=== PATIENT | male | born 1970 | race Caucasian/White ===

== ENCOUNTER 2016-05-21 06:52 | Emergency (ER) | payer MEDICAID ==
[~2016-05-21] VITALS: Ht 182.9 cm; Wt 100.0 kg
[~2016-05-21 06:52] MED LIST: PRED20 PO
[2016-05-21 07:14] VITALS: BP 146/85; PULSE 116; RESP 18; TEMP 98.5; O2SAT 96
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
[2016-05-21] MEDS ORDERED: SODIUM CHLOR 0.9% 1000 ML INJ 1,000 ML IV ONE (08:45)
[2016-05-21 08:50] LABS: AUTOMATED NEUTROPHIL # 4.5 TH/MM3 (1.8-7.7); BASOPHIL # 0.1 TH/MM3 (0-0.2); BASOPHIL % 0.9 % (0.0-2.0); EOSINOPHIL % 0.2 % (0.0-4.0); HEMATOCRIT 37.1 % (39.0-51.0); HEMO FLAGS DIFF FINAL; LYMPH % 14.7 % (9.0-44.0); LYMPHOCYTE # 0.9 TH/MM3 (1.0-4.8); MEAN CELL VOLUME 84.7 FL (80.0-100.0); MEAN CORPUSCULAR HEMOGLOBIN 28.8 PG (27.0-34.0); MONO % 10.7 % (0.0-8.0); NEUT % 73.5 % (16.0-70.0); PLATELET COUNT 242 TH/MM3 (150-450); RED BLOOD COUNT 4.38 MIL/MM3 (4.50-5.90); RED CELL DISTRIBUTION WIDTH 13.4 % (11.6-17.2); WHITE BLOOD COUNT 6.2 TH/MM3 (4.0-11.0)
[2016-05-21] MEDS ORDERED: LORazepam 1 MG TAB PO ONE (09:00)
[2016-05-21 09:06] LABS: ANION GAP 9 MEQ/L (5-15)
[2016-05-21 09:12] LABS: ALKALINE PHOSPHATASE 60 U/L (45-117); ALT (GPT) 636 U/L (12-78); AST (GOT) 307 U/L (15-37); BICARBONATE 27.5 MEQ/L (21.0-32.0); BLOOD UREA NITROGEN 16 MG/DL (7-18); CHLORIDE 102 MEQ/L (98-107); CREATINE KINASE 204 U/L (39-308); GLOMERULAR FILTRATION RATE 85 ML/MIN (>89); POTASSIUM 3.8 MEQ/L (3.5-5.1); SODIUM (NA) 138 MEQ/L (136-145); TOTAL BILIRUBIN ADULT 1.1 MG/DL (0.2-1.0)
[2016-05-21 09:27] LABS: CKMB 2.4 NG/ML (0.5-3.6)
[2016-05-21 11:29] LABS: AMPHETAMINE, URINE POS (NEG); BARBITURATES, URINE NEG (NEG); COCAINE, URINE NEG (NEG)
[2016-05-21 14:00] VITALS: BP 130/84; PULSE 98; RESP 18; TEMP 97.9; O2SAT 97
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
[2016-05-21 18:30] VITALS: BP 124/86; PULSE 100; RESP 18
== END 2016-05-21 21:54 | disposition home or self-care (01) ==
LOC: NEPC 06:52 → NEPJ 21:54
DX: F15.150 Other stimulant abuse with stimulant-induced psychotic disorder with delusions (principal); R74.8 Abnormal levels of other serum enzymes; F17.210 Nicotine dependence, cigarettes, uncomplicated
CPT/HCPCS: 80053; 80307; 82550; 82552; 84484; 85025; 99284